=== PATIENT | female | born 1970 | race Caucasian/White ===

== ENCOUNTER 2016-10-09 14:38 | Emergency (ER) | payer MEDICAID ==
[~2016-10-09] VITALS: Ht 167.6 cm; Wt 74.0 kg
[2016-10-09] MEDS ORDERED: KETOROLAC 60MG/2ML VIAL IM STA (15:18)
[2016-10-09 16:00] LABS: HCG SCREEN NEGATIVE
[2016-10-09] MEDS ORDERED: HYDROCODONE/ACETAMINOPHEN 5/325MG TABLET PO ONE (17:15)
[2016-10-09 17:36] VITALS: BP 127/62
== END 2016-10-09 17:38 | disposition home or self-care (01) ==
LOC: ER 15:05
DX: M54.5 Low back pain (principal); M25.552 Pain in left hip; R03.0 Elevated blood-pressure reading, without diagnosis of hypertension; S70.01XA Contusion of right hip, initial encounter; W01.0XXA Fall on same level from slipping, tripping and stumbling without subsequent striking against object, initial encounter; Y93.89 Activity, other specified; Y92.89 Other specified places as the place of occurrence of the external cause
CPT/HCPCS: 72100; 73502; 84703; 96372; 99285; J1885; Z7610